=== PATIENT | male | born 1965 ===

== ENCOUNTER → 2023-09-20 | Outpatient (CLI) | payer BC ==
--- NOTE | 2023-10-17 09:37 | CT ---
Patient: Joel Marti M Ordering Physician: Unknown, Unknown ID: [id number] Phone, Pager: Phone: N/A Pager: N/A : 1965 Age/Gender: 58Y, M Primary Location: N/A Procedure: PELVIS W/O Study Date: 09/20/2023 4:04:00 PM EXAMINATION TYPE: CT pelvis wo con CT DLP: 491 mGycm, Automated exposure control for dose reduction was used. DATE OF EXAM: 09/29/2023 9:04 AM COMPARISON: None CLINICAL INDICATION: Pain left hip TECHNIQUE: Axial CT pelvis wo con;Sagittal and coronal reformats were created on a separate workstat ion. Contrast used: mL of , (none if empty) Oral contrast used: (none if empty) FINDINGS: BLADDER: Mild bladder wall thickening anteriorly measuring up to 7 mm. REPRODUCTIVE: Unremarkable. ABDOMEN & PELVIS STOMACH AND BOWEL: No evidence of bowel obstruction. The appendix is normal. Scattered colonic divert icula. PERITONEUM/RETROPERITONEUM: No evidence of pneumoperitoneum or free fluid. VASCULATURE: Mild atherosclerotic calcifications are present throughout the abdominal aorta and its b ranches. No evidence of aortic aneurysm. MUSCULOSKELETAL: No acute osseous abnormalities there is severe degeneration changes left hip with perry bchondral sclerosis involving the femoral head. No obvious deformity to the femoral head to suggest s ubchondral collapse. There is mild osteophyte formation of the hips bilaterally with joint space narr owing. Transitional vertebrae at L5 with bilateral sacralization of the transverse processes. LYMPH NODES: No gross evidence for lymphadenopathy. SOFT TISSUE/ABDOMINAL WALL: Unremarkable IMPRESSION: 1. 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 2. No evidence of fracture.
--- NOTE | 2023-10-19 09:27 | MR ---
Site ID synapse default Patient Joel Marti M ID [id number] 1965 Age/Gender: 58Y, M Order # N/A Procedure MR lumbar spine wo con Date 09/20/2023 2:28:18 PM EXAMINATION TYPE: MR lumbar spine wo con DATE OF EXAM: 09/30/2023 COMPARISON: None HISTORY: Chronic back pain, pain pump TECHNIQUE: Multiplanar, multisequence images of the lumbar spine were acquired without IV contrast. FINDINGS: Susceptibility artifact from patient's pain pump in the left back limits evaluation. The bryson mbar vertebral bodies do have preserved heights and alignment. Disc desiccation is present L5-S1. Th ere is a dorsal dural diverticulum measuring 7 x 6 mm at midline at the L3-L4 level (series 601, imag e 14). The conus medullaris and the distal spinal cord do appear unremarkable with regards to their s ignal intensity. There is some grouping of the cauda equina at the L3-L4 level without discrete clump appearance. L1-L2: No significant disc pathology is identified. The spinal canal and neural foramen are patent. L2-L3: No significant disc pathology is identified. The spinal canal and neural foramen are patent. L3-L4: No significant disc pathology is identified. The spinal canal and neural foramen are patent. L4-L5: Broad-based disc bulge with minimal effacement of the anterior thecal sac. Mild bilateral face t arthropathy. Mild bilateral neural foraminal narrowing. L5-S1: Eccentric left disc bulge with tiny left paracentral disc protrusion. There is mild effacement of the anterior thecal sac. Abutment of the exiting left nerve root by the disc bulge. Mild left mery ral foraminal narrowing. The right neural foramen is patent. Other significant findings: There are 3 discrete left renal T2 hyperintense lesions favored to repres ent cysts with largest measuring up to 3.9 mm. This can be further evaluated with renal ultrasound as clinically indicated. IMPRESSION: 1. L5-S1 disc bulge with tiny paracentral disc herniation. This abuts the exiting left nerve root wit h mild left neural foraminal narrowing. 2. L3-L4 dorsal dural diverticulum.
--- NOTE | 2023-10-19 09:28 | XR ---
Site ID [facility] Patient Marti David, M ID [id number] 1965 Age/Gender: 58Y, M Order # N/A Procedure XR Hip Bilateral and AP pelvis Date 09/20/2023 4:08:00 PM EXAMINATION TYPE: XR Hip Bilateral and AP pelvis DATE OF EXAM: 10/01/2023 6:57 PM INDICATION: Patient age: Male; 58 year old; Reason for study: Left hip pain COMPARISON: None. TECHNIQUE: Both hips were examined in the frontal and lateral projections and a AP pelvis. FINDINGS: No evidence of any acute osseous pathology, joint dislocation, or soft tissue swelling. Med ial joint space narrowing with marginal osteophytosis superiorly of both hips. Left lower abdomen miranda n pump identified. Degenerative changes of the visualized lower lumbar spine with disc space narrowin g and osteophytosis. IMPRESSION: 1. No acute osseous pathology. 2. Mild osteophytic changes of both hips. 3. 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
== END | disposition home or self-care (01) ==
LOC: RADCTMAIN 14:50
PROVIDERS: ATTEND Neurological Surgery
DX: M48.07 Spinal stenosis, lumbosacral region (principal); M51.37 Other intervertebral disc degeneration, lumbosacral region; M99.73 Connective tissue and disc stenosis of intervertebral foramina of lumbar region; M16.0 Bilateral primary osteoarthritis of hip
CPT/HCPCS: 72148; 72192; 73521